=== PATIENT | female | born 1960 | race Hispanic/Latino ===

== ENCOUNTER 2019-10-13 18:39 | Emergency (ER) | payer OTHER ==
--- NOTE | 2019-10-13 19:42 | RAD REPORT ---
EXAM DESCRIPTION: CT - Head Brain Wo Cont - 10/13/2019 7:36 pm CLINICAL HISTORY: DIZZINESS Headache, drowsiness COMPARISON: No comparisons TECHNIQUE: All CT scans are performed using dose optimization technique as appropriate and may inclu de automated exposure control or mA/KV adjustment according to patient size. FINDINGS: No intracranial hemorrhage, hydrocephalus or extra-axial fluid collection.No areas of brai n edema or evidence of midline shift. The paranasal sinuses and mastoids are clear. The calvarium is intact. IMPRESSION: No acute intracranial abnormality.
[2019-10-13] MEDS ORDERED: MECLIZINE HCL 12.5 MG TAB ONE (20:05)
[2019-10-13] MEDS ORDERED: ONDANSETRON 4 MG/2 ML VIAL ONE (20:05)
[2019-10-13 20:09] LABS: Absolute Lymphocytes (CBC) 2.2 K/uL (0.7-4.9); Basophils % 1.1 % (0-1.3); Hematocrit 32.1 % (36.0-45.0); Lymphocytes % 31.8 % (15.3-44.8); MPV 9.3 fL (7.6-11.3); RBC Red Blood Cell Count 4.14 M/uL (3.86-4.86)
[2019-10-13 20:24] LABS: Potassium 3.7 mmol/L (3.5-5.1)
[2019-10-13] MEDS ORDERED: INSULIN -REGULAR HUMAN 50 UNIT/0.5 ML ML ONE (21:17)
[2019-10-13] MEDS ORDERED: NA CHLORIDE 0.9% 1,000 ML ONE (21:17)
--- NOTE | 2019-10-13 21:43 | ER ---
Nurse's Notes [facility] Name: Tere Duong Age: 59 yrs Sex: Female : 1960 Arrival Date: 10/13/2019 Time: 18:40 Bed 27 Private MD: Diagnosis: Dizziness and giddiness Presentation: 10/13 18:47 Chief complaint: Patient states: Intermittent dizziness for 1 week. + nausea, slight ll1 diarrhea. No known fever. Coronavirus screen: The patient has NOT traveled to [place] in the past 14 days. Proceed with normal triage procedures. Ebola Screen: No symptoms or risks identified at this time. Initial Sepsis Screen: Does the patient meet any 2 criteria? No. Patient's initial sepsis screen is negative. Does the patient have a suspected source of infection? No. Patient's initial sepsis screen is negative. Risk Assessment: Do you want to hurt yourself or someone else? Patient reports no desire to harm self or others. 18:47 Method Of Arrival: Ambulatory ll1 18:47 Acuity: CORA 3 ll1 18:50 Onset of symptoms is unknown. ls4 Triage Assessment: 19:57 General: Appears uncomfortable, Behavior is calm, cooperative. Pain: Denies pain. ls4 Neuro: Reports dizziness. GI: Reports nausea, Patient currently denies abdominal pain, vomiting. Historical: - Allergies: 18:50 No Known Allergies; ll1 - PMHx: 18:50 Hypertension; Diabetes - IDDM; ll1 - PSHx: 18:50 Hysterectomy; ll1 - Immunization history:: Adult Immunizations up to date. - Social history:: Patient/guardian denies using alcohol, street drugs, tobacco products, Smoking status: Patient reports the use of cigarette tobacco products, denies chronic smoking, but will smoke occasionally. Screenin:18 Abuse screen: Denies threats or abuse. Denies injuries from another. Nutritional ls4 screening: No deficits noted. Tuberculosis screening: No symptoms or risk factors identified. Fall Risk None identified. Assessment: 19:58 Neuro: Reports dizziness. Cardiovascular: No deficits noted. Respiratory: No deficits ls4 noted. GI: Abdomen is non-distended, Bowel sounds present X 4 quads. Abd is soft and non tender X 4 quads. 21:00 Reassessment: Patient appears in no apparent distress at this time. Patient and/or ls4 family updated on plan of care and expected duration. Pain level reassessed. Patient is alert, oriented x 3, equal unlabored respirations, skin warm/dry/pink. 21:52 Reassessment: Patient appears in no apparent distress at this time. Patient and/or ls4 family updated on plan of care and expected duration. Pain level reassessed. Patient is alert, oriented x 3, equal unlabored respirations, skin warm/dry/pink. Patient states feeling better. Vital Signs: 18:47 BP 154 / 66; Pulse 77; Resp 18; Temp 97.9; Pulse Ox 99% ; Weight 70.76 kg; Height 4 ft. ll1 11 in. (149.86 cm); Pain 7/10; 21:51 BP 130 / 74; Pulse 72; Resp 14; Temp 98.0(O); Pulse Ox 99% on R/A; Pain 0/10; ls4 18:47 Body Mass Index 31.51 (70.76 kg, 149.86 cm) ll1 ED Course: 18:40 Patient arrived in ED. as 18:49 Triage completed. ll1 18:50 Arm band placed on right wrist. Patient placed in an exam room. ll1 18:54 Nicole Lancaster FNP-C [facility]. kb 18:54 Marcelino Mckenna MD is Attending Physician. kb 19:17 Kathryn Campuzano, DINAH is Primary Nurse. ls4 19:18 Patient has correct armband on for positive identification. Bed in low position. Call ls4 light in reach. Side rails up X 1. residential monitor on. Pulse ox on. NIBP on. 19:18 No provider procedures requiring assistance completed. ls4 19:30 EKG done, by ED staff. lt1 19:36 CT Head Brain wo Cont In Process Unspecified. EDMS 19:56 Initial lab(s) drawn, by me, sent to lab. Inserted saline lock: 22 gauge in right hand, ls4 using aseptic technique. Blood collected. 21:45 IV discontinued, bleeding controlled, No redness/swelling at site. Pressure dressing ls4 applied. Administered Medications: Discontinued: NS 0.9% 1000 ml IV at 1000 ml once 20:04 Drug: Zofran (Ondansetron) 4 mg Route: IVP; Site: right hand; ls4 20:34 Follow up: Response: No adverse reaction ls4 20:04 Drug: Meclizine 25 mg Route: PO; ls4 20:34 Follow up: Response: No adverse reaction ls4 21:18 Drug: Insulin Regular Human 5 units {Co-Signature: ls4 (Kathryn Campuzano RN).} Route: IVP; vc Site: right antecubital; 21:54 Follow up: Response: No adverse reaction ls4 21:18 Drug: NS 0.9% 1000 ml Route: IV; Rate: 1000 ml; Site: right hand; vc 21:52 Follow up: IV Status: Order to discontinue infusion; IV Intake: 500ml ; PT REQUEST, SHE ls4 FEELS BETTER AND WANTS TO GO HOME Intake: 21:52 IV: 500ml; Total: 500ml. ls4 Outcome: 21:42 Discharge ordered by . kb 21:53 Discharged to home ambulatory. ls4 21:53 Condition: good 21:53 Discharge instructions given to patient, Instructed on discharge instructions, follow up and referral plans. medication usage, Demonstrated understanding of instructions, follow-up care, medications, Prescriptions given X 2. 21:55 Patient left the ED. ls4 Signatures: Dispatcher [employer] EDMS Nicole Lancaster, PIPE FITTER-C PIPE FITTER-Nuria Renner Lisa, RN RN ls4 Ileana Panchal lt1 Dionna Browning RN RN vc Lewis, Lynsay, RN RN ll1 Kathryn Campuzano RN ls4
--- NOTE | 2019-10-13 21:43 | EDPHYS ---
Physician Documentation [facility] Name: Tere Duogn Age: 59 yrs Sex: Female : 1960 Arrival Date: 10/13/2019 Time: 18:40 Bed 27 Private MD: ED Physician Marcelino Mckenna HPI: 10/13 20:08 This 59 yrs old Female presents to ER via Ambulatory with complaints of kb Dizziness, Nausea. 20:08 The patient presents with dizziness. Onset: The symptoms/episode began/occurred 3 kb day(s) ago. Context: occurred at home, occurred while the patient was cleaning ears. just prior to the episode the patient experienced no apparent symptoms. Modifying factors: The symptoms are alleviated by nothing, the symptoms are aggravated by movement of head, changing position. Associated signs and symptoms: Pertinent positives: headache, nausea. Severity of symptoms: At their worst the symptoms were moderate in the emergency department the symptoms have improved. Patient's baseline: Neuro: alert and fully oriented, Motor: no deficits, Ambulation: walks without assistance, Speech: normal. The patient has not experienced similar symptoms in the past. The patient has not recently seen a physician. Historical: - Allergies: 18:50 No Known Allergies; ll1 - PMHx: 18:50 Hypertension; Diabetes - IDDM; ll1 - PSHx: 18:50 Hysterectomy; ll1 - Immunization history:: Adult Immunizations up to date. - Social history:: Patient/guardian denies using alcohol, street drugs, tobacco products, Smoking status: Patient reports the use of cigarette tobacco products, denies chronic smoking, but will smoke occasionally. ROS: 20:07 Constitutional: Negative for fever, chills, and weight loss, ENT: Negative for injury, kb pain, and discharge, Neck: Negative for injury, pain, and swelling, Cardiovascular: Negative for chest pain, palpitations, and edema, Respiratory: Negative for shortness of breath, cough, wheezing, and pleuritic chest pain, : Negative for injury, bleeding, discharge, and swelling, MS/Extremity: Negative for injury and deformity, Skin: Negative for injury, rash, and discoloration. 20:07 Abdomen/GI: Positive for nausea. 20:07 Neuro: Positive for dizziness, headache. Exam: 20:05 Constitutional: This is a well developed, well nourished patient who is awake, alert, kb and in no acute distress. Head/Face: Normocephalic, atraumatic. ENT: Nares patent. No nasal discharge, no septal abnormalities noted. Tympanic membranes are normal and external auditory canals are clear. Oropharynx with no redness, swelling, or masses, exudates, or evidence of obstruction, uvula midline. Mucous membranes moist. Neck: Trachea midline, no thyromegaly or masses palpated, and no cervical lymphadenopathy. Supple, full range of motion without nuchal rigidity, or vertebral point tenderness. No Meningismus. Chest/axilla: Normal chest wall appearance and motion. Nontender with no deformity. No lesions are appreciated. Cardiovascular: Regular rate and rhythm with a normal S1 and S2. No gallops, murmurs, or rubs. Normal PMI, no JVD. No pulse deficits. Respiratory: Lungs have equal breath sounds bilaterally, clear to auscultation and percussion. No rales, rhonchi or wheezes noted. No increased work of breathing, no retractions or nasal flaring. Abdomen/GI: Soft, non-tender, with normal bowel sounds. No distension or tympany. No guarding or rebound. No evidence of tenderness throughout. Back: No spinal tenderness. No costovertebral tenderness. Full range of motion. Skin: Warm, dry with normal turgor. Normal color with no rashes, no lesions, and no evidence of cellulitis. MS/ Extremity: Pulses equal, no cyanosis. Neurovascular intact. Full, normal range of motion. Neuro: Awake and alert, GCS 15, oriented to person, place, time, and situation. Cranial nerves II-XII grossly intact. Motor strength 5/5 in all extremities. Sensory grossly intact. Cerebellar exam normal. Normal gait. 20:05 ECG was reviewed by the Attending Physician. Vital Signs: 18:47 BP 154 / 66; Pulse 77; Resp 18; Temp 97.9; Pulse Ox 99% ; Weight 70.76 kg; Height 4 ft. ll1 11 in. (149.86 cm); Pain 7/10; 21:51 BP 130 / 74; Pulse 72; Resp 14; Temp 98.0(O); Pulse Ox 99% on R/A; Pain 0/10; ls4 18:47 Body Mass Index 31.51 (70.76 kg, 149.86 cm) ll1 MDM: 18:54 Patient medically screened. kb 20:07 Data reviewed: vital signs, nurses notes. Data interpreted: Pulse oximetry: on room air kb is 99 %. Interpretation: normal. 21:42 Counseling: I had a detailed discussion with the patient and/or guardian regarding: the kb historical points, exam findings, and any diagnostic results supporting the discharge/admit diagnosis, lab results, radiology results, the need for outpatient follow up, a family practitioner, to return to the emergency department if symptoms worsen or persist or if there are any questions or concerns that arise at home. ED course: Pt is ready to go home. Does not want to wait for fluids. 10/13 19:19 Order name: CBC with Diff; Complete Time: 20:15 kb 10/13 19:19 Order name: Basic Metabolic Panel; Complete Time: 20:41 kb 10/13 19:19 Order name: CT Head Brain wo Cont; Complete Time: 19:55 kb 10/13 21:00 Order name: Urine Dipstick--Ancillary (enter results) mw2 10/13 21:41 Order name: Glucose, Ancillary Testing; Complete Time: 21:42 EDMS 10/13 19:19 Order name: IV Start; Complete Time: 19:56 kb 10/13 19:19 Order name: EKG; Complete Time: 19:20 kb 10/13 19:19 Order name: EKG - Nurse/Tech; Complete Time: 19:30 kb 10/13 19:20 Order name: Urine Dipstick-Ancillary (obtain specimen); Complete Time: 21:21 kb EC:05 Rate is 70 beats/min. Rhythm is regular. Left axis deviation noted. [place] interval is kb normal at 138 msec. QRS interval is normal at 78 msec. QT interval is normal at 422 msec. Administered Medications: Discontinued: NS 0.9% 1000 ml IV at 1000 ml once 20:04 Drug: Zofran (Ondansetron) 4 mg Route: IVP; Site: right hand; ls4 20:34 Follow up: Response: No adverse reaction ls4 20:04 Drug: Meclizine 25 mg Route: PO; ls4 20:34 Follow up: Response: No adverse reaction ls4 21:18 Drug: Insulin Regular Human 5 units {Co-Signature: ls4 (Kathryn Justen RN).} Route: IVP; vc Site: right antecubital; 21:54 Follow up: Response: No adverse reaction ls4 21:18 Drug: NS 0.9% 1000 ml Route: IV; Rate: 1000 ml; Site: right hand; vc 21:52 Follow up: IV Status: Order to discontinue infusion; IV Intake: 500ml ; PT REQUEST, SHE ls4 FEELS BETTER AND WANTS TO GO HOME Disposition: 10/13/19 21:42 Discharged to Home. Impression: Dizziness and giddiness. - Condition is Stable. - Discharge Instructions: Vertigo, [id number], Dizziness, [id number]. - Prescriptions for Meclizine 25 mg Oral Tablet - take 1 tablet by ORAL route every 8 hours As needed; 30 tablet. Zofran 4 mg Oral Tablet - take 1 tablet by ORAL route every 6 hours As needed; 20 tablet. - Medication Reconciliation Form, Thank You Letter, Antibiotic Education, Prescription Opioid Use form. - Follow up: Emergency Department; When: As needed; Reason: Worsening of condition. Follow up: Private Physician; When: 2 - 3 days; Reason: Recheck today's complaints, Continuance of care, Re-evaluation by your physician. Addendum: 11/03/2019 07:24 Co-signature as Attending Physician, Marcelino Mckenna MD Available for consultation at p s1 all times. . Signatures: Dispatcher [employer] EDND Nicole Lancaster, CHAIR AND COUCH MAKER-C CHAIR AND COUCH MAKER-Ckb Marcelino Mckenna MD MD ps1 Stewart, Lisa, RN RN ls4 Dionna Browning RN RN Lucy Doyle RN RN ll1 Kathryn Campuzano RN ls4 Corrections: (The following items were deleted from the chart) 10/13 21:55 21:42 10/13/2019 21:42 Discharged to Home. Impression: Dizziness and giddiness. ls4 Condition is Stable. Discharge Instructions: Vertigo, Ewej-[id number], Dizziness, Dchj-vv-Tvis. Prescriptions for Meclizine 25 mg Oral Tablet - take 1 tablet by ORAL route every 8 hours As needed; 30 tablet, Zofran 4 mg Oral Tablet - take 1 tablet by ORAL route every 6 hours As needed; 20 tablet. and Forms are Medication Reconciliation Form, Thank You Letter, Antibiotic Education, Prescription Opioid Use. Follow up: Emergency Department; When: As needed; Reason: Worsening of condition. Follow up: Private Physician; When: 2 - 3 days; Reason: Recheck today's complaints, Continuance of care, Re-evaluation by your physician. kb
[2019-10-13 22:12] VITALS: O2SAT 99
[2019-10-13 22:13] VITALS: BP 130/74; TEMP 98
[2019-10-13 22:47] LABS: Urine Blood 2+ (NEG); Urine Glucose 2+ (NEG); Urine Protein NEGATIVE (NEG); Urine pH 6.5 (5.0-7.0)
--- NOTE | 2019-10-14 07:01 | EKG ---
Test Date: 2019-10-13 Test Time: 19:30:24 Director Of Infection Control: EULALIOT MEASUREMENT RESULTS: Intervals: Rate: 70 VA: 138 QRSD: 78 QT: 422 QTc: 455 [place]: P: 22 VA: 138 QRS: -11 T: 86 INTERPRETIVE STATEMENTS: Normal sinus rhythm Voltage criteria for left ventricular hypertrophy Nonspecific ST and T wave abnormality Abnormal ECG No previous ECG available for comparison Electronically Signed On 10-14-19 07:00:24 FELTING MACHINE OPERATOR HELPER by Onel Dunaway
== END 2019-10-13 21:55 | disposition home or self-care (01) ==
LOC: ER 18:39
DX: R42 Dizziness and giddiness (principal); I10 Essential (primary) hypertension; F17.210 Nicotine dependence, cigarettes, uncomplicated
CPT/HCPCS: 96361; 93005; 85025; 80048; 36415; 82947; 81003; 70450; 96375; 96374; 99284; J8597; J7030; J2405